=== PATIENT | female | born 1950 | race African-American/Black ===

== ENCOUNTER 2021-02-09 12:51 | Emergency (ER) | payer OTHER, MEDICARE, SELFPAY ==
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
[2021-02-09 13:00] VITALS: BP 123/41; PULSE 66; RESP 12; TEMP 36.8; O2SAT 99
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
== END 2021-02-09 14:06 | disposition home or self-care (01) ==
PROVIDERS: Emergency Provider Nurse Practitioner; PCP Internal Medicine
DX: M54.5 Low back pain (principal); M25.551 Pain in right hip; M25.561 Pain in right knee; V47.5XXA Car driver injured in collision with fixed or stationary object in traffic accident, initial encounter; Z87.891 Personal history of nicotine dependence
CPT/HCPCS: 72100; 73120; 73502; 73564; 99214; G0463

== ENCOUNTER → 2021-05-14 11:49 | Outpatient (CLI) | payer MEDICARE, SELFPAY ==
--- NOTE | ~2021-05-14 | XR_ITS ---
XR wrist LT min 3V DATE: 05/14/2021 13:00 INDICATION: Left wrist pain, osteoarthritis TECHNIQUE: 4 views COMPARISON: None FINDINGS: There is osteophytic changes of the first carpal metacarpal joint. Diffuse osteopenia. No fracture, dislocation, periosteal reaction or bone destruction, erosive change or chondrocalcinosi s. IMPRESSION: Osteopenia Osteoarthritis at first carpometacarpal joint Reviewed, dictated and finalized at location B.
--- NOTE | ~2021-05-14 | XR_ITS ---
XR lumbar spine 2-3V DATE: 05/14/2021 13:01 INDICATION: Back pain TECHNIQUE: AP, lateral, coned lateral lumbosacral views COMPARISON: 02/09/2021 lumbar spine FINDINGS: There is diffuse osteopenia. There is grade 1 anterolisthesis and moderate degenerative disc disease at L4-5. No fracture or bone destruction or spondylolisthesis is noted otherwise. The lumbar pedicles appear i ntact. The sacral iliac joints are normal. There is extensive calcification of the abdominal aorta and common iliac arteries without aneurysm. Status post cholecystectomy. There is a prominent amount of fecal material within the colon. IMPRESSION: Diffuse osteopenia Grade 1 anterolisthesis and moderate degenerative disease at L4-5 Reviewed, dictated and finalized at location B.
--- NOTE | ~2021-05-14 | XR_ITS ---
XR knee RT min 4V DATE: 05/14/2021 13:00 INDICATION: Right knee pain TECHNIQUE: [place] and standing AP, PA and lateral views COMPARISON: None FINDINGS: Diffuse osteopenia. No fracture or dislocation or joint effusion. No radiopaque interarticular loose body or chondrocalci nosis or joint effusion. No periosteal reaction or bone destruction. IMPRESSION: Osteopenia Reviewed, dictated and finalized at location B. IMPRESSION: Osteopenia
--- NOTE | ~2021-05-14 | XR_ITS ---
XR sacrum coccyx min 2V DATE: 05/14/2021 13:01 INDICATION: Pain TECHNIQUE: AP, angled AP and lateral views COMPARISON: None FINDINGS: Examination is limited by osteopenia and overlying bowel gas and fecal shadows. The pubic symphysis and sacroiliac joints are intact. No sacral or coccygeal fracture or bone destruc tion is noted. IMPRESSION: Osteopenia Reviewed, dictated and finalized at location B. IMPRESSION: Osteopenia
--- NOTE | ~2021-05-14 | XR_ITS ---
XR knee LT min 4V DATE: 05/14/2021 13:00 INDICATION: Left knee pain TECHNIQUE: [place] and standing AP, PA and lateral views COMPARISON: None FINDINGS: Diffuse osteopenia. No fracture or dislocation or joint effusion. No radiopaque intra-articular loose body or chondrocalc inosis. No periosteal reaction or bone destruction. Joint spaces are relatively preserved. Femoral and popliteal and trifurcation artery calcifications IMPRESSION: Diffuse osteopenia Reviewed, dictated and finalized at location B. IMPRESSION: Diffuse osteopenia
--- NOTE | ~2021-05-14 | XR_ITS ---
XR hand LT min 3V DATE: 05/14/2021 13:00 INDICATION: Left hand pain TECHNIQUE: 3 views COMPARISON: 02/09/2021 left hand FINDINGS: Diffuse osteopenia. There is prominent osteophytic change at the first carpometacarpal joint. Osteoarthritic changes note d at some of the interphalangeal joints, most prominent at the DIP joint of the fourth digit. No fracture, dislocation, periosteal reaction or bone destruction. IMPRESSION: Osteopenia Polyarticular osteoarthritis, most prominent at first carpometacarpal joint Reviewed, dictated and finalized at location B.
--- NOTE | ~2021-05-14 | XR_ITS ---
XR hip BI wo pelvis DATE: 05/14/2021 13:01 INDICATION: Bilateral hip pain TECHNIQUE: AP and lateral views of each hip COMPARISON: None FINDINGS: There is osteopenia. No fracture, dislocation, avascular necrosis or bone destruction of either hip. Hip joint spaces are mildly narrowed but symmetric. The pubic symphysis and sacroiliac joints are intact. IMPRESSION: Osteopenia Mild osteoarthritis of the hips Reviewed, dictated and finalized at location B.
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
== END ==
PROVIDERS: PCP Internal Medicine
DX: M17.9 Osteoarthritis of knee, unspecified (principal); M51.36 Other intervertebral disc degeneration, lumbar region; M53.82 Other specified dorsopathies, cervical region; M18.9 Osteoarthritis of first carpometacarpal joint, unspecified; M85.88 Other specified disorders of bone density and structure, other site; M19.031 Primary osteoarthritis, right wrist; M19.041 Primary osteoarthritis, right hand; M19.032 Primary osteoarthritis, left wrist; M85.861 Other specified disorders of bone density and structure, right lower leg; M85.862 Other specified disorders of bone density and structure, left lower leg; M16.0 Bilateral primary osteoarthritis of hip; M19.042 Primary osteoarthritis, left hand
CPT/HCPCS: 72100; 72220; 73110; 73130; 73521; 73564

== ENCOUNTER → 2021-12-21 11:08 | Outpatient (CLI) | payer MEDICARE, SELFPAY ==
--- NOTE | ~2021-12-21 | XR_ITS ---
XR hip RT min 2V 12/21/2021 12:08 Indication: Right hip pain Procedure: 2 views right hip Comparison: Comparison to multiple prior studies sequentially, with oldest reviewed study dated 12/12. Findings: No fracture, subluxation or dislocation. There is anatomic alignment. No significant joint space narrowing. There are femoral vascular calcifications. Impression: 1: No acute bone or joint abnormality. Reviewed, dictated and finalized at location A. Impression: 1: No acute bone or joint abnormality.
--- NOTE | ~2021-12-21 | XR_ITS ---
EXAM: XR lumbar spine 2-3V DATE: 12/21/2021 12:08 HISTORY: M54.9 - Dorsalgia, unspecified . COMPARISON: 05/14/2021. FINDINGS: Cystectomy clips. Suture line projects over the stomach. Severe osteopenia. 5 nonrib-bearin g lumbar-type vertebral bodies. Pedicles intact. 3 mm anterolisthesis of L4 on L5, alignment otherwis e intact. Vertebral body heights preserved. Moderate disc space narrowing at L4-5. Multilevel facet a rthropathy and interspinous narrowing. No fracture or dislocation. Atherosclerotic abdominal aortic c alcification without evident aneurysm. IMPRESSION: Moderate degenerative disc disease at L4-5, with grade 1 anterolisthesis. Multilevel face t arthropathy. Reviewed, dictated and finalized at location K. IMPRESSION: Moderate degenerative disc disease at L4-5, with grade 1 anterolist hesis. Multilevel facet arthropathy.
== END ==
PROVIDERS: PCP Internal Medicine; Visit Provider Internal Medicine
DX: M51.36 Other intervertebral disc degeneration, lumbar region (principal)
CPT/HCPCS: 72100; 73502

== ENCOUNTER → 2022-01-04 12:49 | Outpatient (CLI) | payer MEDICARE, SELFPAY ==
--- NOTE | ~2022-01-04 | MR_ITS ---
EXAMINATION: MR brain/brain stem wo con DATE: 01/04/2022 13:42 INDICATION: Unspecified dementia without behavioral disturbance. TECHNIQUE: Magnetic resonance imaging (MRI) of the brain and brainstem was performed without intraven ous contrast. COMPARISON: None. FINDINGS: There are scattered areas of nonspecific increased T2-weighted signal intensity in the cere bral white matter, which is within normal limits for the patient's age. There is no intracranial hemo rrhage, acute infarction, or abnormal intracranial mass lesion. The ventricles are normal in size. Th e paranasal sinuses are clear. The orbits are normal. The mastoid air cells are normal. IMPRESSION: 1. Normal aging brain. Reviewed, dictated and finalized at location A. IMPRESSION: 1. Normal aging brain.
--- NOTE | ~2022-01-04 | CT_ITS ---
EXAMINATION: CT abdomen pelvis wo con DATE: 01/04/2022 13:15 INDICATION: R10.31 - Right lower quadrant pain TECHNIQUE: Computed tomography (CT) of the abdomen and pelvis was performed without intravenous contr ast. Automated exposure control and iterative reconstruction technique were employed. The dose-length product was 548.02 mGy-cm. COMPARISON: None FINDINGS: Lower thorax: Unremarkable Liver: Normal. Biliary/Gallbladder: Gallbladder is absent. No bile duct dilation. Pancreas: No mass or duct dilation. Spleen: Normal. Adrenals:No mass. Kidneys: No mass, stone, or hydronephrosis. GI tract: No small or large bowel dilation. Status post gastric bypass. Uncomplicated distal anastomo sis. Appendix not visualized. Scattered diverticuli without diverticulitis. Fecalization within sever al loops of small bowel as can be seen with decreased transit time. Large volume of colonic stool. Mesentery/Peritoneum: No ascites, mass, or free air. Retroperitoneum: No mass. Abdominal arterial atherosclerotic calcification. Pelvis: Fibroid uterus. Pelvic organs otherwise normal. Soft Tissues: Soft tissues and body wall unremarkable. Bones: No acute osseous finding. Grade 1 anterolisthesis of L4 on L5, with severe degenerative disc change, no pars defect. IMPRESSION: Uterine fibroids. Large volume of colonic stool may reflect some degree of constipation in the approp riate clinical context. Possible decreased GI tract transit time. Reviewed, dictated and finalized at location K. IMPRESSION: Uterine fibroids. Large volume of colonic stool may reflect some degree of cons tipation in the appropriate clinical context. Possible decreased GI tract trans it time.
== END ==
PROVIDERS: PCP Internal Medicine; Visit Provider Internal Medicine
DX: R10.31 Right lower quadrant pain (principal); R63.4 Abnormal weight loss; F03.90 Unspecified dementia, unspecified severity, without behavioral disturbance, psychotic disturbance, mood disturbance, and anxiety; D25.9 Leiomyoma of uterus, unspecified
CPT/HCPCS: 70551; 74176

== ENCOUNTER 2024-08-15 13:32 | Outpatient (CLI) | payer MEDICARE, SELFPAY ==
--- NOTE | ~2024-08-15 | CT_ITS ---
EXAMINATION: CTA brain carotid DATE: 08/15/2024 15:13 INDICATION: Cerebral aneurysm without rupture. TECHNIQUE: Computed tomographic angiography (CTA) of the head was performed without and with 100 mL O [id number] intravenous contrast. CTA of the neck was performed with intravenous contrast. Automated exposure control and iterative reconstruction technique were employed. The dose-length product was 1 521.35 mGy-cm. Maximum intensity projection and volume rendered 3D-reconstructions were created by irina watkins technologist on a separate workstation. COMPARISON: Brain MRI 01/04/2022 FINDINGS: HEAD CTA: There is no intracranial hemorrhage, acute infarction, or abnormal intracranial mass lesion . The ventricles are normal in size. The paranasal sinuses are clear. The mastoid air cells are xuan l. The vertebral arteries are codominant. There is no significant stenosis of basilar artery or the p osterior cerebral arteries. There is no significant stenosis of the intracranial internal carotid art eries or anterior or middle cerebral arteries. Anterior communicating artery is normal. The posterior communicating arteries are normal. There is no aneurysm. NECK CTA: There are nodules in the thyroid measuring up to 7 mm. There are no pathologically enlarged lymph nodes. There is no significant stenosis of the vertebral arteries. There is plaque in the prox imal internal carotid arteries. There is 0% stenosis of the proximal right internal carotid artery re lative to normal distal artery lumen diameter (NASCET criteria). There is 0% stenosis of the proximal left internal carotid artery relative to normal distal artery lumen diameter. There is severe cervic al spondylosis. There are changes of anterior fusion procedure at C3-C4. IMPRESSION: 1. Normal brain. No aneurysm or significant intracranial arterial stenosis 2. 0% stenosis of the proximal internal carotid arteries relative to normal distal artery lumen diame ters (NASCET criteria). Reviewed, dictated and finalized at location A. 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 Normal brain. No aneurysm or significant intracranial arterial stenosis 2. 0% stenosis of the proximal internal carotid arteries relative to normal dis vickie artery lumen diameters (NASCET criteria).
--- NOTE | ~2024-08-15 | XR_ITS ---
3 VIEWS LUMBAR SPINE Ordering provider: Florencio Jones, History: . LUMBAR DISC DISEASE . Comparison: December 21, 2021 FINDINGS: VERTEBRAL BODIES:Minimal anterolisthesis at the level of L4-L5. No visible fracture or subluxation. DISK SPACES: Narrowing of the disc L4-L5. SOFT TISSUES: Atherosclerotic changes of the aorta. IMPRESSION: No acute osseous abnormality lumbar spine. Degenerative disc disease at the level of L4-L5. Reviewed, dictated and finalized at location A. 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
[2024-08-15 14:00] LABS: Estimated Glomerular Filt Rate 53
== END 2024-08-15 13:33 | disposition home or self-care (01) ==
LOC: MICIMG 13:34
PROVIDERS: PCP Internal Medicine; Visit Provider Family Medicine
DX: I67.1 Cerebral aneurysm, nonruptured (principal); M51.369 Other intervertebral disc degeneration, lumbar region without mention of lumbar back pain or lower extremity pain
CPT/HCPCS: 70496; 70498; 72100; Q9967